=== PATIENT | female | born 1965 | race Hispanic/Latino ===

== ENCOUNTER 2020-03-01 09:44 | Emergency (ER) | payer BC, SELFPAY ==
[2020-03-01 09:47] VITALS: BP 128/84; PULSE 73; RESP 18; TEMP 36.1; O2SAT 100; BMI 22.4
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
--- NOTE | 2020-03-01 10:38 | EKG12_ITS ---
Test Reason : A/A Blood Pressure : / mmHG Vent. Rate : 072 BPM Atrial Rate : 072 BPM P-R Int : 192 ms QRS Dur : 072 ms QT Int : 390 ms P-R-T Axes : 069 062 054 degrees QTc Int : 427 ms Normal sinus rhythm with sinus arrhythmia Normal ECG Confirmed by URI LANGLEY, SHEA ([id number]), legal editor LINDA COFFMAN ([id number]) on 03/02/2020 3:42:56 PM Referred By: MARIUSZ Confirmed By:SHEA GREWAL MD
[2020-03-01] MEDS: Ibuprofen 600 MG Tablet PO (10:45)
[2020-03-01 12:15] VITALS: BP 115/76; PULSE 64; RESP 18; O2SAT 97
== END 2020-03-01 12:40 | disposition home or self-care (01) ==
LOC: ED 12:04
PROVIDERS: Emergency Provider Emergency Medicine; PCP Student in an Organized Health Care Education/Training Program
DX: S20.219A Contusion of unspecified front wall of thorax, initial encounter (principal); S09.90XA Unspecified injury of head, initial encounter; V49.9XXA Car occupant (driver) (passenger) injured in unspecified traffic accident, initial encounter
CPT/HCPCS: 71046; 71120; 93005; 99284

== ENCOUNTER → 2022-07-17 | Outpatient (CLI) | payer OTHER, SELFPAY ==
--- NOTE | 2022-07-17 17:21 | NEURO ---
NCS and/or EMG Patient Report Ordering Doctor: Aniceto Gudino DATE OF SERVICE: 07/17/22 Indication: Right hand weakness and spasms for many years. Mild superimposed sensory disturbances as well. Evaluate for entrapment neuropathy. Findings: Nerve conduction studies were performed in the right upper extremity. The right ulnar motor study recording the abductor digiti minimi showed a normal amplitude, prolonged distal latency and borderline conduction velocity. Conduction block and focal slowing were present across the elbow. The right ulnar motor study recording the first dorsal interosseous showed a normal amplitude, prolonged distal latency and borderline conduction velocity. Conduction block and focal slowing was present across the elbow. The right median motor study recording the abductor pollicis brevis showed a normal amplitude, prolonged distal latency and normal conduction velocity. The right median sensory response recording digit two showed a reduced amplitude, prolonged latency and markedly slowed conduction velocity. The right ulnar sensory response recording digit five was absent. The right radial sensory response recording over the extensor snuff box showed a normal amplitude, prolonged latency and slowed conduction velocity. Needle EMG of the right upper extremity muscles was performed. No denervation was seen in any muscle, however, fasciculation potentials were present in ulnar muscles. In the first dorsal interosseous, abductor pollicis brevis and flexor digitorum profundus (medial) motor units were large amplitude, long duration with decreased recruitment. Impression: This is a markedly abnormal and complex study. There is electrophysiologic evidence consistent with: 1.) An ulnar neuropathy across the right elbow 2.) An ulnar neuropathy across the right wrist 3.) A median neuropathy across the right wrist The pathophysiology of all of the above lesions was predominantly demyelination, however, there was evidence of secondary sensory axon loss. In addition, there was a slowed radial sensory response across the wrist of unclear significance. While it is possible that all of the above lesions are mechanical in etiology a more diffuse disorder of the peripheral nerve [i.e. hereditary neuropathy with lability to pressure palsies (HNPP)] could be considered in the correct clinical context. If desired a neuromuscular ultrasound could be performed to further characterize the above findings. Jeremy Jernigan D.O. Multi Select Codes Neurology Neurology Interp Codes: 77296-78 Musc test done w/n test comp (interp) and 70724-79 Nrv cndj tst 5-6 studies (interp)
== END | disposition home or self-care (01) ==
PROVIDERS: PCP Student in an Organized Health Care Education/Training Program; Referring Provider Student in an Organized Health Care Education/Training Program; Visit Provider Student in an Organized Health Care Education/Training Program
DX: M79.641 Pain in right hand (principal); R29.898 Other symptoms and signs involving the musculoskeletal system
CPT/HCPCS: 95886; 95909